=== PATIENT | female | born 1955 | race African-American/Black ===

== ENCOUNTER 2018-05-31 08:20 | Emergency (ER) | payer SELFPAY ==
--- OUTSIDE RECORDS SUMMARY | 2018-05-31 08:23 | XMS REPORT | Clinical Summary ---
:1955 Author Organization [facility] Address [address] [place] [address] Care Team Providers Name Role Phone Asked, No Pcp Primary Care Provider Unavailable Allergies No Known Allergies Current Medications Prescription Sig. Disp. Refills Start Date End Date Status ipratropium-albute Take 3 mL by 360 mL 6 05/02/2018 Active rol (DUO-NEB) nebulization 8 0.5-2.5 mg/mL every 4 (four) nebulizer hours while awake for 30 days. divalproex Take 1 tablet 30 tablet 0 05/02/2018 Active (DEPAKOTE) 500 MG (500 mg total) by 8 24 hr tablet mouth daily for 30 days. ARIPiprazole Take 1 tablet (5 30 tablet 0 05/02/2018 Active (ABILIFY) 5 MG mg total) by 8 tablet mouth nightly for 30 days. ARIPiprazole Take 5 mg by Discontinued (ABILIFY) 5 MG mouth nightly. 8 tablet divalproex Take 500 mg by Discontinued (DEPAKOTE) 500 MG mouth daily. 2 8 24 hr tablet tablets at bedtime tiotropium bromide Inhale once Discontinued 2.5 mcg/actuation daily. 2 puffs 8 mist daily predniSONE Take 2 tablets 14 tablet 0 05/03/2018 (DELTASONE) 20 mg (40 mg total) by 8 tablet mouth daily for 7 days. cefpodoxime Take 2 tablets 20 tablet 0 05/03/2018 (VANTIN) 200 MG (400 mg total) by 8 tablet mouth 2 (two) times a day for 5 days. Active Problems Problem Noted Date COPD with acute exacerbation (HCC) 04/30/2018 Acute tracheobronchitis 04/30/2018 Tobacco dependence 04/30/2018 Acute respiratory failure with hypoxia (HCC) 04/29/2018 Encounters Date Type Specialty Care Team Description 04/29/2018 - Hospital Encounter General Internal Zeny Santillan Acute respiratory failure with hypoxia (Primary Dx); 05/02/2018 Medicine Crystal, DO Hypoxia; Gabino Sweeney, COPD with acute exacerbation; DO Tobacco abuse Job Crook MD English, Zaki Curtis MD after 05/30/2017 Immunizations Name Dates Previously Given Next Due FLUCELVAX QUAD PF (0.5mL syringe) 05/02/2018 Social History Tobacco Use Types Packs/Day Years Used Date Current Every Day Smoker Smokeless Tobacco: Never Used Alcohol Use Drinks/Week oz/Week Comments No Sex Assigned at Date Recorded Not on file Last Filed Vital Signs Vital Sign Reading Time Taken Blood Pressure 124/71 05/02/2018 3:47 PM CDT Pulse 91 05/02/2018 3:47 PM CDT Temperature 36.7 C (98 F) 05/02/2018 3:47 PM CDT Respiratory Rate 18 05/02/2018 3:47 PM CDT Oxygen Saturation 92% 05/02/2018 3:47 PM CDT Inhaled Oxygen Concentration - - Weight 47.9 kg (105 lb 9.6 oz) 05/02/2018 6:34 AM CDT Height 160 cm (5' 3") 04/29/2018 7:03 PM CDT Body Mass Index 18.71 05/02/2018 6:34 AM CDT Plan of Treatment Health Maintenance Due Date Last Done Comments CERVICAL CANCER SCREENING 1978 BREAST CANCER SCREENING 2007 COLON CANCER SCREENING 2007 SHINGRIX VACCINE (#1) 2007 ZOSTER VACCINE 2017 INFLUENZA VACCINE Completed 05/02/2018 Procedures Procedure Name Priority Date/Time Associated Comments Diagnosis T4 Routine 05/01/2018 12:16 Results for this PM CDT procedure are in the results section. T4, FREE Routine 05/01/2018 12:16 Results for this PM CDT procedure are in the results section. T3 Routine 05/01/2018 12:16 Results for this PM CDT procedure are in the results section. T3, FREE Routine 05/01/2018 12:16 Results for this PM CDT procedure are in the results section. FOLATE LEVEL Routine 05/01/2018 4:34 Results for this AM CDT procedure are in the results section. THYROID STIMULATING Routine 05/01/2018 4:34 Results for this HORMONE AM CDT procedure are in the results section. VITAMIN B12 LEVEL Routine 05/01/2018 4:34 Results for this AM CDT procedure are in the results section. GRAM STAIN Routine 04/30/2018 11:17 Results for this PM CDT procedure are in the results section. SPUTUM CULTURE Routine 04/30/2018 11:17 Results for this PM CDT procedure are in the results section. ECHOCARDIOGRAM 2D Routine 04/30/2018 4:02 Results for this COMPLETE W MMODE PM CDT procedure are in SPECTRAL COLOR DOPPLER the results (84233) section. TROPONIN Timed 04/29/2018 10:38 Results for this PM CDT procedure are in the results section. URINALYSIS SCREEN AND STAT 04/29/2018 9:49 Results for this MICROSCOPY, WITH REFLEX PM CDT procedure are in TO CULTURE the results section. GRAM STAIN STAT 04/29/2018 9:49 Results for this PM CDT procedure are in the results section. URINE CULTURE STAT 04/29/2018 9:49 Results for this PM CDT procedure are in the results section. XR CHEST 1 VW PORTABLE STAT 04/29/2018 7:47 Results for this PM CDT procedure are in the results section. BLOOD CULTURE, AEROBIC Routine 04/29/2018 7:43 Results for this & ANAEROBIC PM CDT procedure are in the results section. BLOOD CULTURE, AEROBIC Routine 04/29/2018 7:41 Results for this & ANAEROBIC PM CDT procedure are in the results section. ESTIMATED GFR STAT 04/29/2018 7:39 Results for this PM CDT procedure are in the results section. B NATRIURETIC PEPTIDE STAT 04/29/2018 7:39 Results for this PM CDT procedure are in the results section. TROPONIN STAT 04/29/2018 7:39 Results for this PM CDT procedure are in the results section. CREATINE KINASE, TOTAL STAT 04/29/2018 7:39 Results for this (CPK) PM CDT procedure are in the results section. HEPATIC FUNCTION PANEL STAT 04/29/2018 7:39 Results for this PM CDT procedure are in the results section. BASIC METABOLIC PANEL STAT 04/29/2018 7:39 Results for this PM CDT procedure are in the results section. TYPE AND SCREEN Routine 04/29/2018 7:39 Results for this PM CDT procedure are in the results section. PARTIAL THROMBOPLASTIN STAT 04/29/2018 7:39 Results for this TIME (PTT) PM CDT procedure are in the results section. PROTHROMBIN TIME WITH STAT 04/29/2018 7:39 Results for this INR PM CDT procedure are in the results section. HC COMPLETE BLD COUNT STAT 04/29/2018 7:39 Results for this W/AUTO DIFF PM CDT procedure are in the results section. ECG ED PRELIMINARY Routine 04/29/2018 7:30 Results for this INTERPRETATION PM CDT procedure are in the results section. [place] [facility], E/M Routine 04/29/2018 7:30 Results for this 30-74 MINUTES PM CDT procedure are in the results section. ECG 12-LEAD STAT 04/29/2018 7:29 Results for this PM CDT procedure are in the results section. after 05/30/2017 Results T3, free (05/01/2018 12:16 PM) T3, free 1.5 (L) 2.4 - 4.2 pg/mL [facility] Comment: REFERENCE INTERVAL: Triiodothyronine, Free (Free T3) Access complete set of age- and/or gender-specific reference intervals for this test in the [facility] Test Directory ([facility]). Performed by [facility], [address] [place] [address] [email or web address], José Luis Mackenzie MD - Lab. Director Specimen Serum Performing Organization Address [facility]/Zipcode Phone Number [facility] [address] [place] [address] T3 (05/01/2018 12:16 PM) T3 56 (L) 80 - 200 ng/dL [facility] DEPARTMENT OF PATHOLOGY AND GENOMIC MEDICINE Specimen Plasma specimen Performing Organization Address City/[facility]/Zipcode Phone Number [facility] [place] [address] GENOMIC MEDICINE T4, free (05/01/2018 12:16 PM) T4, free 0.9 0.8 - 1.8 ng/dL [facility] DEPARTMENT OF PATHOLOGY AND GENOMIC MEDICINE Specimen Plasma specimen Performing Organization Address City/[facility]/Zipcode Phone Number [facility] DEPARTMENT OF PATHOLOGY AND [id number] [place], [place] [address]y. [address] [place] [address] [facility] MEDICINE T4 (05/01/2018 12:16 PM) T4 4.8 4.5 - 11.7 ug/dL [facility] DEPARTMENT OF PATHOLOGY AND GENOMIC MEDICINE Specimen Plasma specimen Performing Organization Address [facility] Centercode Phone Number [facility] DEPARTMENT OF PATHOLOGY AND [address] [place] [address] [facility] Thyroid stimulating hormone (05/01/2018 4:34 AM) TSH 0.17 (L) 0.55 - 4.78 uIU/mL [facility] DEPARTMENT OF PATHOLOGY AND GENOMIC [facility] Specimen Serum Performing Organization Address [facility] Centerconm Phone Number [facility] DEPARTMENT OF PATHOLOGY AND [id number] [place], [place] [address]y. [address] [place] [address] [facility] Folate level (05/01/2018 4:34 AM) Folate 7.1 ng/mL [facility] DEPARTMENT OF PATHOLOGY AND Comment: [facility] MEDICINE Reference Ranges Normal: 2.76 - >20 Deficient:1.01 - 2.79 Specimen Serum Performing Organization Address [facility] Phone Number [facility] DEPARTMENT OF PATHOLOGY AND [id number] [place], [place] [address]y. [address] [place] [address] [facility] Vitamin B12 level (05/01/2018 4:34 AM) Vitamin B12 645 pg/mL [facility] DEPARTMENT OF PATHOLOGY Comment: AND GENOMIC MEDICINE Significant overlap exists between normal and deficiency states. However, most patients with deficiencies will have Serum B12 <200 pg/mL. Specimen Serum Performing Organization Address [facility] Phone Number [facility] DEPARTMENT OF PATHOLOGY AND [address] [place] [address]. [address] [place] [address] [facility] Sputum culture (04/30/2018 11:17 PM) Sputum culture isolate Normal oral gordon isolated. [facility] DEPARTMENT OF Normal oral gordon and PATHOLOGY AND GENOMIC (A) MEDICINE Comment: Specimen Information Specimen Source: Sputum Specimen Site: Expectorated Sputum culture isolate Staphylococcus aureus [facility] DEPARTMENT OF Occasional PATHOLOGY AND GENOMIC This organism is Methicillin Sensitive. MEDICINE (A) Specimen Sputum - Expectorated Organism Antibiotic Method Susceptibility Staphylococcus aureus Clindamycin ARIANA <=0.5 mcg/mL: Resistant Staphylococcus aureus Erythromycin ARIANA >4 mcg/mL: Resistant Staphylococcus aureus Linezolid ARIANA 2 mcg/mL: Susceptible Staphylococcus aureus Minocycline ARIANA <=1 mcg/mL: Susceptible Staphylococcus aureus Oxacillin ARIANA 0.5 mcg/mL: Susceptible Staphylococcus aureus Penicillin G ARIANA <=0.125 mcg/mL: Susceptible Staphylococcus aureus Rifampin ARIANA <=0.5 mcg/mL: Susceptible Staphylococcus aureus Trimethoprim/Sulfamethoxazol ARIANA >2/38 mcg/mL: Resistant e Staphylococcus aureus Tetracycline ARIANA <=0.5 mcg/mL: Susceptible Staphylococcus aureus Vancomycin ARIANA 1 mcg/mL: Susceptible Performing Organization Address [facility] Phone Number [facility] DEPARTMENT OF PATHOLOGY AND [address] [place], [place] [id number] GENOMIC MEDICINE Gram stain (04/30/2018 11:17 PM)Only the most recent of2 resultswithin the time period is included. Gram stain isolate Occasional WBC's [facility] DEPARTMENT OF PATHOLOGY Occasional Gram positive rods AND GENOMIC MEDICINE Comment: Specimen Information Specimen Source: Sputum Specimen Site: Expectorated Specimen Sputum - Expectorated Performing Organization Address [facility] Phone Number [facility] DEPARTMENT OF PATHOLOGY AND [address] [place] [address] GENOMIC MEDICINE Echocardiogram complete w contrast and 3D if needed (04/30/2018 4:02 PM) Velocity Ratio (V1/V2) 0.89 m/s [facility] IVS,d 1.02 cm [facility] EF 69.38 % [facility] LVPWD,d 0.97 cm [facility] AoV Mean PG 3.00 mmHg [facility] AV LVOT peak gradient 5.66 mmHg [facility] MV valve area p 1/2 method 3.60 cm2 [facility] E/A ratio 0.83 [facility] E wave decelartion time 211.00 msec [facility] LVOT Diam,S 2.00 cm [facility] LVOT area 3.14 cm2 [facility] LVOT Vmax 1.19 m/s [facility] LVOT VTI 0.22 m [facility] AoV Peak PG 7.08 mmHg [facility] MV Peak E Vitaly 0.63 m/s [facility] MV stenosis pressure 1/2 time 61.19 ms [facility] MV Peak A Vitaly 0.76 m/s [facility] LV Vol,s A2C 27.30 mL [facility] LV Vol,d A2C 73.50 mL [facility] AoV Area, Vmax 2.81 cm2 [facility] AoV Area, VTI 2.94 cm2 [facility] AoV Vmax 1.33 m/s [facility] IVS/LVPW,2D 1.05 [facility] Left Atrium Dimension Anterior 3.10 cm [facility] LV,d 3.83 cm [facility] LV,s 2.36 cm [facility] LV Vol,d A4C 64.00 ml [facility] LV Vol,s A4C 28.20 ml [facility] RVSP (TR) 33.62 mmHg [facility] TR Vpeak 2.43 mm/s [facility] MV E A ratio 0.82 mmHg [facility] RA pressure 10.00 mmHg [facility] TR pk grad 23.62 mmHg [facility] RVSP 33.62 mmHg [facility] Ao Root,d,2D 3.30 cm [facility] LV SYS VOL 19.33 ml [facility] LV MALLORY VOL 63.13 ml [facility] LV SV Teich 2D 43.80 ml [facility] LV Vol s Teich PSAX 19.33 ml [facility] AoV Vmn 0.86 [facility] LV FS Cube 2D 38.38 [facility] LV FS Teich 2D 38.38 [facility] AoV VTI 0.23 m [facility] LV EF,2D 76.60 % [facility] LV EF,A2C 62.86 % [facility] LV EF,A4C 55.94 % [facility] LV EF,BP 60.96 % [facility] [place],d A2C 8.02 cm [facility] [place],d A4C 7.64 cm [facility] [place],s A2C 6.74 cm [facility] [place],s A4C 6.74 cm [facility] LV SV,A2C 46.20 % [facility] LV SV,A4C 35.80 % [facility] LV SV,BP 42.80 % [facility] LV Vol,d BP 70.22 ml [facility] LV Vol,s BP 27.42 nl [facility] MV AE ratio 1.22 [facility] LVOT Vmn 0.74 [facility] Aov area Vmn 2.71 cm2 [facility] LV Area d A2C 26.20 cm2 [facility] LV Area d A4C 24.20 cm2 [facility] LV Area s A2C 14.30 cm2 [facility] LV Area s A4C 14.80 cm2 [facility] LV EF A L A2C 64.55 % [facility] LV EF A L A4C 57.60 % [facility] LV EF A L BP 60.28 % [facility] LVOT mean grad 3.00 mmHg [facility] MAX Pred HR 159.39 [facility] 85 of MPHR 135.49 [facility] Ao d LA s ratio 1.06 [facility] Calc MPHR 159.39 bpm [facility] LV SV Cube 2D 43.04 ml [facility] LV vol d cube 2D 56.18 ml [facility] LV vol s cube 2D 13.14 ml [facility] Pred Exer Dur R1 7.84 [facility] Pred METS R1 6.82 [facility] Narrative Performed At Left Ventricular ejection fraction is 55 - 60%. [facility] The left ventricle chamber size is normal. No pericardial effusion seen. Performing Organization Address City/[facility]/Zipcode Phone Number [facility] [address] [place] [address] Troponin (04/29/2018 10:38 PM)Only the most recent of2 resultswithin the time period is included. Troponin <0.300 0.000 - 0.300 ng/mL [facility] DEPARTMENT OF Comment: PATHOLOGY AND GENOMIC The diagnostic value of a single normal or non-diagnostic MEDICINE result is questionable.Serial samples at 2-6 hour intervals are required to rule out acute myocardial injury. Specimen Plasma specimen Performing Organization Address City/State/Zipcode Phone Number [facility] DEPARTMENT OF PATHOLOGY AND [address] [facility]. [address] [place] [address] [facility] MEDICINE Urinalysis screen and microscopy, with reflex to culture (04/29/2018 9:49 PM) Specimen site Clean catch [facility] OF [facility] AND GENOMIC MEDICINE Color, UA Yellow YELLOW [facility] DE[facility] OF PATHOLOGY AND GENOMIC MEDICINE Appearance, UA Hazy (A) Clear [facility] DEPARTMENT OF PATHOLOGY AND GENOMIC MEDICINE Specific gravity, UA 1.026 1.005 - 1.030 [facility] DEPARTMENT OF PATHOLOGY AND GENOMIC MEDICINE pH, UA 5.0 5.0 - 8.0 [facility] DEPARTMENT OF PATHOLOGY AND GENOMIC MEDICINE Protein, UA 1+ (A) Negative [facility] DE[facility] OF PATHOLOGY AND GENOMIC MEDICINE Glucose, UA Negative Negative [facility] DEPARTMENT OF PATHOLOGY AND GENOMIC MEDICINE Ketones, UA 1+ (A) Negative [facility] DEPARTMENT OF PATHOLOGY AND GENOMIC MEDICINE Bilirubin, UA Negative Negative [facility] DEPARTMENT OF PATHOLOGY AND GENOMIC MEDICINE Blood, UA Negative Negative [facility] DEPARTMENT OF PATHOLOGY AND GENOMIC MEDICINE Nitrite, UA Negative NEGATIVE [facility] DEPARTMENT OF PATHOLOGY AND GENOMIC MEDICINE Urobilinogen, UA 2.0 <2.0 E.U./dL [facility] DEPARTMENT OF PATHOLOGY AND GENOMIC MEDICINE Leukocyte esterase, UA Trace (A) Negative [facility] DEPARTMENT OF PATHOLOGY AND GENOMIC MEDICINE Epithelial cells, UA 6 0 - 15 /HPF [facility] DEPARTMENT OF PATHOLOGY AND GENOMIC MEDICINE WBC, UA 2 0 - 5 /Hpf [facility] DEPARTMENT OF PATHOLOGY AND GENOMIC MEDICINE RBC, UA 1 0 - 5 /HPF [facility] DEPARTMENT OF PATHOLOGY AND GENOMIC MEDICINE Bacteria, UA None seen None seen [facility] DEPARTMENT OF PATHOLOGY AND GENOMIC MEDICINE Yeast, UA None seen None Seen [facility] DEPARTMENT OF PATHOLOGY AND GENOMIC MEDICINE Yeast with pseudohyphae, UA None seen [facility] DEPARTMENT OF PATHOLOGY AND GENOMIC MEDICINE Specimen Urine Performing Organization Address City/[facility] Centercode Phone Number [facility] DEPARTMENT OF PATHOLOGY AND [address] [facility]. [address] [place] [address] [facility] MEDICINE Urine culture (04/29/2018 9:49 PM) Urine culture isolate Gram negative rods [facility] DEPARTMENT OF 10-2 cfu/ml PATHOLOGY AND GENOMIC (A) MEDICINE Comment: Specimen Information Specimen Source: Urine Specimen Site: Clean catch Urine culture isolate Mixed Gram positive gordon [facility] DEPARTMENT OF 10-4 cfu/ml PATHOLOGY AND GENOMIC (A) MEDICINE Specimen Urine Performing Organization Address City/[facility] Centercode Phone Number [facility] DEPARTMENT OF PATHOLOGY AND [address] [place] [address] [facility] XR Chest 1 Vw Portable (04/29/2018 7:47 PM) Narrative Performed At Study:XR CHEST 1 VW PORTABLE [facility] History: Shortness of breath COMPARISON: None. IMPRESSION: A single view of the chest.There is no focal consolidation, pleural effusion or pneumothorax.Cardiac silhouette is normal.Visualized osseous structures arewithout acute abnormality. [facility]-[id number] Procedure Note Interface, Radiology Results Incoming - 04/29/2018 8:07 PM CDT Study:XR CHEST 1 VW PORTABLE History: Shortness of breath COMPARISON: None. IMPRESSION: A single view of the chest. There is no focal consolidation, pleural effusion or pneumothorax. Cardiac silhouette is normal. Visualized osseous structures are without acute abnormality. [facility]-[id number] Performing Organization Address City/[facility]/Zipcode Phone Number [facility] [address] [place] [address] Blood culture, aerobic & anaerobic (04/29/2018 7:43 PM)Only the most recent of2 resultswithin the time period is included. Blood culture isolate No growth after 5 days of incubation. [facility] DEPARTMENT OF Comment: PATHOLOGY AND GENOMIC Specimen Information MEDICINE Specimen Source: Blood Specimen Site: Forearm, right Specimen Blood - Forearm, right Performing Organization Address City/[facility]/Zipcode Phone Number [facility] DEPARTMENT OF PATHOLOGY AND [address] [place] [address] GENOMIC [facility] Estimated GFR (04/29/2018 7:39 PM) Estimated GFR 80 mL/min/1.73 m2 [facility] DEPARTMENT OF Comment: PATHOLOGY AND GENOMIC CatergoryUnitsInterpretation MEDICINE G1 >=90 Normal or high G2 60-89Mildly decreased [id number] to moderately decreased [id number] to severely decreased G4 15-29Severely decreased G5 <15Kidney failure The eGFR was calculated using the Chronic Kidney Disease Epidemiology Collaboration (CKD-EPI) equation. Interpretation is based on recommendations of the National Kidney Foundation-Kidney Disease Outcomes Quality Initiative (NKF-KDOQI) published in 2014. Specimen Plasma specimen Performing Organization Address City/[facility] Centercode Phone Number [facility] PATHOLOGY AND [address] [place], [place] [address]y. [address] [place] [address] [facility] Partial thromboplastin time, activated (04/29/2018 7:39 PM) PTT 29.5 23.0 - 36.0 sec [facility] DEPARTMENT OF Comment: PATHOLOGY AND GENOMIC PTT therapeutic range for unfractionated heparin is MEDICINE 66.0-112.0 seconds which corresponds to Anti-Xa 0.3-0.7 U/mL. The reference range has changed starting 01/04/2010 @12:00pm Specimen Blood Performing Organization Address City/[facility]/Zipcode Phone Number [facility] AND [address] [place], [place] [address]y. [address] [place] [address] [facility] Prothrombin time with INR (04/29/2018 7:39 PM) Prothrombin time 13.1 12.0 - 15.0 sec [facility] DEPARTMENT OF PATHOLOGY AND GENOMIC MEDICINE INR 1.0 [facility] DEPARTMENT OF Comment: PATHOLOGY AND GENOMIC The International Normalized Ratio (INR) is a therapeutic MEDICINE monitoring tool for patients who are stable on oral anticoagulant therapy. An INR of 2.0-3.0 is suggested for deep vein thrombosis/pulmonary embolism. Specimen Blood Performing Organization Address City/State/Zipcode Phone Number [facility] DEPARTMENT OF PATHOLOGY AND [address] [facility] [place] [address] [employer] [facility] CBC with platelet and differential (04/29/2018 7:39 PM) WBC 4.7 4.5 - 11.0 k/uL [facility] DE[facility] OF PATHOLOGY AND GENOMIC MEDICINE RBC 5.27 4.20 - 5.50 M/uL [facility] DEPARTMENT OF PATHOLOGY AND GENOMIC MEDICINE HGB 14.4 14.0 - 18.0 g/dL [facility] DEPARTMENT OF PATHOLOGY AND GENOMIC MEDICINE HCT 47.7 (H) 37.0 - 47.0 % [facility] DEPARTMENT OF PATHOLOGY AND GENOMIC MEDICINE MCV 90.5 82.0 - 100.0 fL [facility] DE[facility] OF PATHOLOGY AND GENOMIC MEDICINE MCH 27.3 27.0 - 34.0 pg [facility] DE[facility] OF PATHOLOGY AND GENOMIC MEDICINE MCHC 30.2 (L) 31.0 - 37.0 g/dL [facility] DEPARTMENT OF PATHOLOGY AND GENOMIC MEDICINE RDW - SD 55.9 (H) 37.0 - 55.0 fL [facility] DEPARTMENT OF PATHOLOGY AND GENOMIC MEDICINE MPV 10.6 8.8 - 13.2 fL [facility] DEPARTMENT OF PATHOLOGY AND GENOMIC MEDICINE Platelet count 231 150 - 400 K/uL [facility] DEPARTMENT OF PATHOLOGY AND GENOMIC MEDICINE Nucleated RBC 0.00 /100 WBC [facility] DE[facility] OF PATHOLOGY AND GENOMIC MEDICINE Neutrophils 44.7 39.0 - 69.0 % [facility] DEPARTMENT OF PATHOLOGY AND GENOMIC MEDICINE Lymphocytes 36.8 25.0 - 45.0 % [facility] DEPARTMENT OF PATHOLOGY AND GENOMIC MEDICINE Monocytes 8.5 0.0 - 10.0 % [facility] DEPARTMENT OF PATHOLOGY AND GENOMIC MEDICINE Eosinophils 9.4 (H) 0.0 - 5.0 % [facility] DEPARTMENT OF PATHOLOGY AND GENOMIC MEDICINE Basophils 0.4 0.0 - 1.0 % [facility] DEPARTMENT OF PATHOLOGY AND GENOMIC MEDICINE Immature granulocytes 0.2Comment: "Immature 0.0 - 1.0 % [facility] DEPARTMENT OF granulocytes" PATHOLOGY AND GENOMIC (promyelocytes, MEDICINE myelocytes, metamyelocytes) Specimen Blood Performing Organization Address City/State/Zipcode Phone Number [facility] DEPARTMENT OF PATHOLOGY AND [address] [place], [place] [address]y. [address] [place] [address] GENOMIC MEDICINE Type and screen (04/29/2018 7:39 PM) ABO grouping A [facility] DEPARTMENT OF PATHOLOGY AND GENOMIC MEDICINE Rh type POS [facility] [facility] DEPARTMENT OF PATHOLOGY AND GENOMIC MEDICINE Antibody screen (gel) NEG [facility] DEPARTMENT OF PATHOLOGY AND GENOMIC MEDICINE Specimen Blood Performing Organization Address [facility] Phone Number [facility] DEPARTMENT OF PATHOLOGY AND [address] [place] [address] [address] B natriuretic peptide (04/29/2018 7:39 PM) BNP 7 0 - 100 pg/mL [facility] DEPARTMENT OF PATHOLOGY AND GENOMIC MEDICINE Specimen Blood Performing Organization Address [facility] Phone Number [facility] DEPARTMENT OF PATHOLOGY AND [address] [place] [address] [address] Creatine kinase, total (CPK) (04/29/2018 7:39 PM) Creatine kinase 393 (H) 35 - 200 U/L [facility] DEPARTMENT OF PATHOLOGY AND GENOMIC MEDICINE Specimen Plasma specimen Performing Organization Address [facility] Phone Number [facility] DEPARTMENT OF PATHOLOGY AND [address] [place] [address] [address] Hepatic function panel (04/29/2018 7:39 PM) Albumin 4.7 3.5 - 5.0 g/dL [facility] DEPARTMENT OF PATHOLOGY AND GENOMIC MEDICINE Total bilirubin 0.3 0.2 - 1.2 mg/dL [facility] DEPARTMENT OF PATHOLOGY AND GENOMIC MEDICINE Bilirubin direct <0.2 0.0 - 0.4 mg/dL [facility] DEPARTMENT OF PATHOLOGY AND GENOMIC MEDICINE Alkaline phosphatase 69 30 - 115 U/L [facility] DEPARTMENT OF PATHOLOGY AND GENOMIC MEDICINE Protein 8.2 6.3 - 8.2 g/dL [facility] DEPARTMENT OF PATHOLOGY AND GENOMIC MEDICINE ALT 14 10 - 55 U/L [facility] DEPARTMENT OF PATHOLOGY AND GENOMIC MEDICINE AST 40 15 - 46 U/L [facility] DEPARTMENT OF PATHOLOGY AND GENOMIC MEDICINE Specimen Plasma specimen Performing Organization Address [facility] Phone Number [facility] DEPARTMENT OF PATHOLOGY AND [address] [place], [place] [address]y. [address] Basic metabolic panel (04/29/2018 7:39 PM) Sodium 145 135 - 148 mEq/L [facility] DEPARTMENT OF PATHOLOGY AND GENOMIC MEDICINE Potassium 4.3 3.5 - 5.0 mEq/L [facility] DEPARTMENT OF PATHOLOGY AND GENOMIC MEDICINE Chloride 99 99 - 109 mEq/L [facility] DEPARTMENT OF PATHOLOGY AND GENOMIC MEDICINE CO2 34 (H) 24 - 31 mEq/L [facility] DEPARTMENT OF PATHOLOGY AND GENOMIC MEDICINE Anion gap 12@ANIO 7 - 15 mEq/L [facility] DEPARTMENT OF PATHOLOGY AND GENOMIC MEDICINE BUN 18 8 - 24 mg/dL [facility] DEPARTMENT OF PATHOLOGY AND GENOMIC MEDICINE Creatinine 0.80 0.50 - 0.90 mg/dL [facility] DEPARTMENT OF PATHOLOGY AND GENOMIC MEDICINE Glucose 96 65 - 99 mg/dL [facility] DEPARTMENT OF PATHOLOGY AND GENOMIC MEDICINE Calcium 10.5 8.6 - 10.6 mg/dL [facility] DEPARTMENT OF PATHOLOGY AND [employer] MEDICINE Specimen Plasma specimen Performing Organization Address City/State/Zipcode Phone Number [facility] DEPARTMENT OF PATHOLOGY AND [address] [place], [place] [address]y. [address] [place] [address] [facility] MEDICINE ECG ED Preliminary Interpretation - NOT AN ORDER (04/29/2018 7:30 PM) Narrative Performed At Zeny Santillan DO 04/30/20183:08 AM ECG ED Preliminary Interpretation - Not an Order Performed by: ZENY SANTILLAN Authorized by: ZENY SANTILLAN ECG reviewed by ED Physician in the absence of a recruiter coordinator: yes Interpretation: Interpretation: non-specific Rate: ECG rate:85 ECG rate assessment: normal Rhythm: Rhythm: sinus rhythm Ectopy: Ectopy: none QRS: QRS axis:Right QRS intervals:Normal Conduction: Conduction: normal ST segments: ST segments:Non-specific CRITICAL CARE (04/29/2018 7:30 PM) Narrative Performed At Zeny Santillan DO 04/30/20183:08 AM Critical Care Performed by: ZENY SANTILLAN Authorized by: ZENY SANTILLAN Critical care provider statement: Critical care time (minutes):48 Critical care time was exclusive of:Separately billable procedures and treating other patients Critical care was necessary to treat or prevent imminent or life-threatening deterioration of the following conditions:Respiratory failure Critical care was time spent personally by me on the following activities:Development of treatment plan with patient or surrogate, discussions with consultants, discussions with primary provider, evaluation of patient's response to treatment, examination of patient, interpretation of cardiac output measurements, obtaining history from patient or surrogate, ordering and performing treatments and interventions, ordering and review of laboratory studies, ordering and review of radiographic studies, pulse oximetry and re-evaluation of patient's condition ECG 12 lead (04/29/2018 7:29 PM) Ventricular rate 85 [facility] Atrial rate 85 [facility] [place] interval 136 [facility] QRSD interval 72 [facility] QT interval 356 [facility] QTC interval 423 [facility] P axis 1 86 [facility] QRS axis 1 91 [facility] T wave axis 92 [facility] EKG impression Normal sinus rhythm-Rightward axis-Anterior [facility] infarct , age undetermined-Abnormal ECG-No previous ECGs available- Performing Organization Address City/State/Zipcode Phone Number [facility] [address] [place] [address] after 05/30/2017 Insurance Payer Benefit Plan / Group Subscriber ID Type Phone Address PENDING MEDICAID PENDING DISABILITY MEDICAID xxxxxxxxx Medicaid COVERAGE
--- NOTE | 2018-05-31 10:39 | EDPHYS ---
Physician Documentation [facility] Name: Ann Mcclendon Age: 62 yrs Sex: Female : 1955 Arrival Date: 05/31/2018 Time: 08:22 Bed 19 Private MD: ED Physician Tavon Cotton HPI: 05/31 08:44 This 62 yrs old Black Female presents to ER via EMS with complaints of Anxiety. snw 08:44 Onset: The symptoms/episode began/occurred suddenly. Associated signs and symptoms: snw Pertinent positives: chest pain, shortness of breath. Modifying factors: the patient symptoms are aggravated by Emotional upset. The patient has experienced similar episodes in the past. The patient has not recently seen a physician. + hx of COPD, anxiety, in rehab for cocaine and ETOH abuse. Historical: - Allergies: 08:29 No Known Allergies; jl7 - Home Meds: 08:29 divalproex 500 mg oral Tb24 1 tab once daily [Active]; aripiprazole 5 mg oral tab 1 tab jl7 once daily [Active]; - PMHx: 08:29 COPD; Bipolar disorder; Anxiety; jl7 - Immunization history:: Adult Immunizations up to date. - Social history:: Smoking status: Patient uses tobacco products, smokes one-half pack cigarettes per day. - Ebola Screening: : No symptoms or risks identified at this time. ROS: 08:43 Eyes: Negative for injury, pain, redness, and discharge, ENT: Negative for injury, snw pain, and discharge, Neck: Negative for injury, pain, and swelling. 08:43 Abdomen/GI: Negative for abdominal pain, nausea, vomiting, diarrhea, and constipation, Back: Negative for injury and pain, : Negative for injury, bleeding, discharge, and swelling, MS/Extremity: Negative for injury and deformity, Skin: Negative for injury, rash, and discoloration, Neuro: Negative for headache, weakness, numbness, tingling, and seizure. 08:43 Constitutional: Positive for anxiety. 08:43 Cardiovascular: Positive for chest pain. 08:43 Respiratory: Positive for shortness of breath. 08:43 Psych: Positive for anxiety, tearful. Exam: 08:42 Constitutional: This is a well developed, well nourished patient who is awake, alert, snw and in no acute distress. Head/Face: Normocephalic, atraumatic. Eyes: Pupils equal round and reactive to light, extra-ocular motions intact. Lids and lashes normal. Conjunctiva and sclera are non-icteric and not injected. Cornea within normal limits. Periorbital areas with no swelling, redness, or edema. ENT: Nares patent. No nasal discharge, no septal abnormalities noted. Tympanic membranes are normal and external auditory canals are clear. Oropharynx with no redness, swelling, or masses, exudates, or evidence of obstruction, uvula midline. Mucous membranes moist. Neck: Trachea midline, no thyromegaly or masses palpated, and no cervical lymphadenopathy. Supple, full range of motion without nuchal rigidity, or vertebral point tenderness. No Meningismus. Chest/axilla: Normal chest wall appearance and motion. Nontender with no deformity. No lesions are appreciated. Cardiovascular: Regular rate and rhythm with a normal S1 and S2. No gallops, murmurs, or rubs. Normal PMI, no JVD. No pulse deficits. 08:42 Abdomen/GI: Soft, non-tender, with normal bowel sounds. No distension or tympany. No guarding or rebound. No evidence of tenderness throughout. Back: No spinal tenderness. No costovertebral tenderness. Full range of motion. Skin: Warm, dry with normal turgor. Normal color with no rashes, no lesions, and no evidence of cellulitis. MS/ Extremity: Pulses equal, no cyanosis. Neurovascular intact. Full, normal range of motion. Neuro: Awake and alert, GCS 15, oriented to person, place, time, and situation. Cranial nerves II-XII grossly intact. Motor strength 5/5 in all extremities. Sensory grossly intact. Cerebellar exam normal. Normal gait. 08:42 Respiratory: the patient does not display signs of respiratory distress, Respirations: normal, shallow respirations, Breath sounds: bronchial sounds, that are moderate, O2 at 2 L via NC, Spo2 96%. Vital Signs: 08:29 BP 129 / 77; Pulse 77; Resp 18 S; Temp 98(O); Pulse Ox 96% on R/A; Weight 48.99 kg (M); jl7 Pain 0/10; 09:37 BP 124 / 76; Pulse 64; Resp 16 S; Pulse Ox 96% on R/A; jl7 10:48 BP 118 / 75; Pulse 63; Resp 16; Pulse Ox 96% on R/A; jl7 MDM: 08:23 Patient medically screened. snw 10:50 Data reviewed: vital signs, nurses notes. Data interpreted: Pulse oximetry: on 2L(s) snw per nasal canula, is 96 %. Interpretation: acceptable. Counseling: I had a detailed discussion with the patient and/or guardian regarding: the historical points, exam findings, and any diagnostic results supporting the discharge/admit diagnosis, radiology results, the need for outpatient follow up, to return to the emergency department if symptoms worsen or persist or if there are any questions or concerns that arise at home. Special discussion: Based on the patient's history, exam, and Dx evaluation, there is no indication for emergent intervention or inpatient Tx. It is understood by the patient/guardian that if the Sx's persist or worsen they need to return immediately for re-evaluation. Based on the history and exam findings, there is no indication for further emergent testing or inpatient evaluation. I discussed with the patient/guardian the need to see the crop duster for further evaluation of the symptoms. I discussed with the patient/guardian the need to see the primary care provider for further evaluation of the symptoms. 05/31 09:26 Order name: Chest Pa And Lat (2 Views) XRAY snw 05/31 08:34 Order name: EKG; Complete Time: 08:34 snw 05/31 08:34 Order name: EKG - Nurse/Tech; Complete Time: 08:44 snw 05/31 10:26 Order name: EKG; Complete Time: 10:26 snw Administered Medications: No medications were administered Disposition: 13:40 Co-signature as Attending Physician, Tavon Cotton MD. rn Disposition: 05/31/18 10:39 Discharged to Home. Impression: Anxiety disorder, unspecified, Chronic obstructive pulmonary disease, unspecified. - Condition is Stable. - Discharge Instructions: Nonspecific Chest Pain, Chronic Obstructive Pulmonary Disease, Aspirin and Your Heart, Generalized Anxiety Disorder. - Medication Reconciliation Form, Thank You Letter, Antibiotic Education, Prescription Opioid Use form. - Follow up: Private Physician; When: 2 - 3 days; Reason: Recheck today's complaints, Continuance of care, Re-evaluation by your physician. Follow up: Emergency Department; When: As needed; Reason: Worsening of condition. Signatures: Dispatcher [employer] EDFarzaneh Toro, ISOTOPE TECHNICIAN-C ISOTOPE TECHNICIAN-Csnw Tavon Cotton MD MD rn Leal, Jahala, RN RN jl7 Corrections: (The following items were deleted from the chart) 10:52 10:39 05/31/2018 10:39 Discharged to Home. Impression: Anxiety disorder, unspecified; jl7 Chronic obstructive pulmonary disease, unspecified. Condition is Stable. Forms are Medication Reconciliation Form, Thank You Letter, Antibiotic Education, Prescription Opioid Use. Follow up: Private Physician; When: 2 - 3 days; Reason: Recheck today's complaints, Continuance of care, Re-evaluation by your physician. Follow up: Emergency Department; When: As needed; Reason: Worsening of condition. snw
--- NOTE | 2018-05-31 10:39 | ER ---
Nurse's Notes [facility] Name: Ann Mcclendon Age: 62 yrs Sex: Female : 1955 Arrival Date: 05/31/2018 Time: 08:22 Bed 19 Private MD: Diagnosis: Anxiety disorder, unspecified;Chronic obstructive pulmonary disease, unspecified Presentation: 05/31 08:24 Presenting complaint: EMS states: She's at [facility] for cocaine and alcohol jl7 addiction. She started feeling anxious last night and this morning the facility called because she was breathing fast. She calmed down once we got there and has remained calm. The pt reported chest pain and difficulty breathing because of her anxiety. Transition of care: patient was not received from another setting of care. Onset of symptoms was May 30, 2018. Risk Assessment: Do you want to hurt yourself or someone else? Patient reports no desire to harm self or others. Initial Sepsis Screen: Does the patient meet any 2 criteria? No. Patient's initial sepsis screen is negative. Does the patient have a suspected source of infection? No. Patient's initial sepsis screen is negative. Care prior to arrival: None. 08:24 Method Of Arrival: EMS: [facility] jl7 08:24 Acuity: ZANA 3 jl7 Triage Assessment: 08:29 General: Appears in no apparent distress. uncomfortable, Behavior is calm, cooperative, jl7 appropriate for age. Pain: Denies pain. EENT: No signs and/or symptoms were reported regarding the EENT system. Neuro: Level of Consciousness is awake, alert, obeys commands, Oriented to person, place, time, situation. Cardiovascular: Patient's skin is warm and dry. Respiratory: Airway is patent Respiratory effort is even, unlabored, Respiratory pattern is regular, symmetrical. GI: No signs and/or symptoms were reported involving the gastrointestinal system. : No signs and/or symptoms were reported regarding the genitourinary system. Derm: Skin is dry, Skin is normal, Skin temperature is warm. Musculoskeletal: No signs and/or symptoms reported regarding the musculoskeletal system. Historical: - Allergies: 08:29 No Known Allergies; jl7 - Home Meds: 08:29 divalproex 500 mg oral Tb24 1 tab once daily [Active]; aripiprazole 5 mg oral tab 1 tab jl7 once daily [Active]; - PMHx: 08:29 COPD; Bipolar disorder; Anxiety; jl7 - Immunization history:: Adult Immunizations up to date. - Social history:: Smoking status: Patient uses tobacco products, smokes one-half pack cigarettes per day. - Ebola Screening: : No symptoms or risks identified at this time. Screenin:32 Abuse screen: Denies threats or abuse. Denies injuries from another. Nutritional jl7 screening: No deficits noted. Tuberculosis screening: No symptoms or risk factors identified. Fall Risk None identified. Assessment: 08:32 General: See triage assessment. jl7 09:37 Reassessment: Patient appears in no apparent distress at this time. No changes from jl7 previously documented assessment. Patient and/or family updated on plan of care and expected duration. Pain level reassessed. Patient is alert, oriented x 3, equal unlabored respirations, skin warm/dry/pink. 10:30 Reassessment: Patient appears in no apparent distress at this time. Patient and/or jl7 family updated on plan of care and expected duration. Pain level reassessed. Patient is alert, oriented x 3, equal unlabored respirations, skin warm/dry/pink. Vital Signs: 08:29 BP 129 / 77; Pulse 77; Resp 18 S; Temp 98(O); Pulse Ox 96% on R/A; Weight 48.99 kg (M); jl7 Pain 0/10; 09:37 BP 124 / 76; Pulse 64; Resp 16 S; Pulse Ox 96% on R/A; jl7 10:48 BP 118 / 75; Pulse 63; Resp 16; Pulse Ox 96% on R/A; jl7 ED Course: 08:22 Patient arrived in ED. jl7 08:22 [facility]aneh Chavez [facility]C [facility] snw 08:23 Tavon Cotton MD is Attending Physician. snw 08:27 Triage completed. jl7 08:29 Arm band placed on right wrist. jl7 08:32 Patient has correct armband on for positive identification. Placed in gown. Bed in low jl7 position. Call light in reach. Side rails up X 1. Pulse ox on. NIBP on. 08:32 Warm blanket given. jl7 08:35 Km Donis RN is Primary Nurse. jl7 08:43 EKG done, by horticultural technical officer. reviewed by Farzaneh CORREIA. at1 09:46 Chest Pa And Lat (2 Views) XRAY In Process Unspecified. EDMS 10:32 EKG done, by horticultural technical officer. reviewed by Farzaneh CORREIA Repeat EKG. at1 10:47 No provider procedures requiring assistance completed. Patient did not have IV access jl7 during this emergency room visit. Administered Medications: No medications were administered Outcome: 10:39 Discharge ordered by MD. tena 10:47 Discharged to Rehab Facility jl7 10:47 Condition: stable 10:47 Discharge instructions given to patient, Instructed on discharge instructions, follow up and referral plans. Demonstrated understanding of instructions, follow-up care. 10:52 Patient left the ED. jl7 Signatures: Dispatcher [employer] EDMS Farzaneh Chavez, FREDERIC-C CIRCULATION CREW LEADER-Csnw Klaudia Castelan, parts counter associate EKG Tat1 Km Donis RN RN jl7
--- NOTE | 2018-05-31 11:01 | RAD REPORT ---
EXAM DESCRIPTION: Kimberly Snider (2 Views)05/31/2018 9:47 am CLINICAL HISTORY: Chest pain COMPARISON: None FINDINGS: Mild interstitial opacities may be present which probably are chronic. Lungs are mildly to moderately hyperaerated. The lungs appear clear of acute infiltrate. The heart is normal size IMPRESSION: No acute abnormalities displayed
--- NOTE | 2018-05-31 13:46 | EKG ---
Test Date: 2018-05-31 Test Time: 08:42:48 Steam Tunnel Feeder: CAMRON MEASUREMENT RESULTS: Intervals: Rate: 67 MA: 132 QRSD: 74 QT: 332 QTc: 350 [place]: P: 74 MA: 132 QRS: 75 T: 54 INTERPRETIVE STATEMENTS: Normal sinus rhythm Nonspecific T wave abnormality Abnormal ECG No previous ECG available for comparison Electronically Signed On 05-31-18 13:45:23 CDT by Alf Angel
--- NOTE | 2018-05-31 13:46 | EKG ---
Test Date: 2018-05-31 Test Time: 10:29:04 Regulatory Affairs Coordinator: CAMRON MEASUREMENT RESULTS: Intervals: Rate: 60 MT: 136 QRSD: 78 QT: 410 QTc: 410 [place]: P: 86 MT: 136 QRS: 91 T: 80 INTERPRETIVE STATEMENTS: Normal sinus rhythm Rightward axis Minimal voltage criteria for LVH, may be normal variant Nonspecific T wave abnormality Abnormal ECG Compared to ECG 05/31/2018 08:42:48 Right-axis deviation now present Left ventricular hypertrophy now present T-wave abnormality still present Electronically Signed On 05-31-18 13:45:13 CDT by Alf Angel
== END 2018-05-31 10:52 | disposition home or self-care (01) ==
LOC: ER 08:20
DX: F41.9 Anxiety disorder, unspecified (principal); J44.9 Chronic obstructive pulmonary disease, unspecified; F31.9 Bipolar disorder, unspecified; F17.210 Nicotine dependence, cigarettes, uncomplicated
CPT/HCPCS: 71046; 93005; 99284